=== PATIENT | female | born 1990 | race Caucasian/White ===

== ENCOUNTER 2022-10-11 16:21 | Emergency (ER) | payer MEDICAID ==
[~2022-10-11] VITALS: Ht 167.7 cm; Wt 119.9 kg
[2022-10-11] MEDS ORDERED: IBUPROFEN 800 MG (MOTRIN) TAB PO STA (16:37)
--- NOTE | 2022-10-11 16:44 | ED Fever ---
History of Present Illness General Stated Complaint: BODY ACHES,FEVER,THROAT BURNING Source: patient History of Present Illness Date Seen by Provider: Oct 11, 2022 Time Seen by Provider: 16:26 Initial Comments 31-year-old female presenting with complaints of fever, body aches, throat burning and sinus pressure. She states this all started last night. She has been taking Tylenol Cold and sinus with minimal improvement. She has not been to urgent care or seen her primary care provider. She states that she did a home COVID test that was negative this morning. She feels like the medicine is not helping her and she is worried that she has influenza. She would like Tamiflu if she is positive for influenza. Timing/Duration: yesterday Fever Quality: greater than 100.5 F Fever Therapy [employer]: Tylenol Associated Symptoms: No abdominal pain, No chest pain, No confusion, No cough, No diaphoresis; headache, muscle aches; No nausea/vomiting, No rash, No shortness of breath; sore throat; No stiff neck, No syncope, No weakness Allergies and Home Medications Allergies Coded Allergies: No Known Drug Allergies (Unverified , 10/11/22) Patient Home Medication List Home Medication List Reviewed: Yes Ondansetron (Ondansetron Odt) 4 Mg Tab.rapdis, 4 MG PO Q6H PRN for NAUSEA/VOMITING Prescribed by: RUTH SCHWAB on 10/11/221711 Oseltamivir Phosphate (Tamiflu) 75 Mg Cap, 75 MG PO BID Prescribed by: RUTH SCHWAB on 10/11/221711 Review of Systems Review of Systems Constitutional: chills, fever, malaise EENTM: see HPI Respiratory: no symptoms reported Cardiovascular: no symptoms reported Gastrointestinal: no symptoms reported Genitourinary: no symptoms reported Musculoskeletal: other (body and joint aches) Skin: No rash Psychiatric/Neurological: Headache Past Efwewin-Tryuof-Fhaciz Hx Patient Social History Tobacco Use?: No Past Medical History Surgeries: Yes Appendectomy Physical Exam Vital Signs - First Documented Capillary Refill : Height: '" Weight: lbs. oz. kg; BMI Method: General Appearance: WD/WN, mild distress (tearful at times), obese HEENT: PERRL/EOMI, pharyngeal erythema; No tonsillar exudate Neck: full range of motion, supple, lymphadenopathy (R), lymphadenopathy (L), tender lateral Respiratory: chest non-tender, lungs clear, normal breath sounds, no respiratory distress, no accessory muscle use Cardiovascular: normal peripheral pulses, tachycardia Gastrointestinal: normal bowel sounds, non tender, soft, no pulsatile mass Extremities: normal range of motion, non-tender, normal capillary refill Neurologic/Psychiatric: alert, oriented x 3 Skin: normal color, warm/dry Progress/Results/Core Measures Suspected Sepsis SIRS Temperature: Pulse: Respiratory Rate: Blood Pressure / Mean: Results/Orders Lab Results Laboratory Tests Test 10/11/22 16:39 Range/Units Urine Color YELLOW Urine Clarity CLEAR Urine pH 6.0 5-9 Urine Specific Scott 1.020 1.016-1.022 Urine Protein NEGATIVE NEGATIVE Urine Glucose (UA) NEGATIVE NEGATIVE Urine Ketones NEGATIVE NEGATIVE Urine Nitrite NEGATIVE NEGATIVE Urine Bilirubin NEGATIVE NEGATIVE Urine Urobilinogen 0.2 < = 1.0 MG/DL Urine Leukocyte Esterase NEGATIVE NEGATIVE Urine RBC (Auto) 2+ H NEGATIVE Urine RBC 2-5 H /HPF Urine WBC RARE /HPF Urine Squamous Epithelial Cells 25-50 H /HPF Urine Crystals PRESENT H /LPF Urine Amorphous Sediment FEW ALIA URATES H /LPF Urine Bacteria TRACE /HPF Urine Casts NONE /LPF Urine Mucus SMALL H /LPF Urine Culture Indicated NO Urine Opiates Screen NEGATIVE NEGATIVE Urine Oxycodone Screen NEGATIVE NEGATIVE Urine Methadone Screen NEGATIVE NEGATIVE Urine Propoxyphene Screen NEGATIVE NEGATIVE Urine Barbiturates Screen NEGATIVE NEGATIVE Ur Tricyclic Antidepressants Screen NEGATIVE NEGATIVE Urine Phencyclidine Screen NEGATIVE NEGATIVE Urine Amphetamines Screen NEGATIVE NEGATIVE Urine Methamphetamines Screen POSITIVE H NEGATIVE Urine Benzodiazepines Screen NEGATIVE NEGATIVE Urine Cocaine Screen NEGATIVE NEGATIVE Urine Cannabinoids Screen NEGATIVE NEGATIVE Influenza Type A (RT-PCR) Detected H Not Detecte Influenza Type B (RT-PCR) Not Detected Not Detecte SARS-CoV-2 RNA (RT-PCR) Not Detected Not Detecte Group A Streptococcus Screen NEGATIVE NEGATIVE My Orders Orders - RUTH SCHWAB MD Urine Bedside (10/11/22 16:28) Ua Culture If Indicated (10/11/22 16:28) Drug Screen Stat (Urine) (10/11/22 16:28) Ibuprofen Tablet (Motrin Tablet) (10/11/22 16:37) Covid 19 Inhouse Test (10/11/22 16:37) Influenza A And B By Pcr (10/11/22 16:37) Isolation Central Supply Req (10/11/22 16:37) Rapid Strep A Screen (10/11/22 16:39) Vital Signs/I&O 10/11/22 10/11/22 16:27 16:27 Temp 37.7 Pulse 116 Resp 17 B/P (MAP) 160/87 (111) O2 Delivery Room Air Room Air Capillary Refill : Progress Note #1: Progress Note Obtain swab for strep with her throat and a swab of her nose to check for COVID and influenza. Ibuprofen 800 mg p.o. x1 for her body aches and low-grade temperature of 99.8. Progress Note #2: Progress Note Influenza A came back positive with her COVID and strep negative. As she is within the first 48 hours will prescribe Tamiflu to try and help with her symptoms. She also requesting something for nausea to help settle her stomach. Will prescribe Zofran to try and help with that. Encouraged to push fluids and rest. Alternate Tylenol and ibuprofen if needed for body aches and fever. Check back with the primary care provider for continued concerns. Departure Impression Primary Impression: Influenza A virus present Additional Impressions: Pharyngitis Qualified Codes: J02.9 - Acute pharyngitis, unspecified Acute viral syndrome Generalized body aches Fever in adult Disposition: 01 HOME, SELF-CARE Condition: Stable Departure-Patient Inst. Decision time for Depature: 17:08 Patient Instructions: Sore Throat, Adult ED, Flu, Adult ED, Fatigue ED, Fever, Adult ED Add. Discharge Instructions: Stay well hydrated and keep sipping on fluids. Take the Tamiflu to help shorten the course of the infection from Influenza A virus. Take Ibuprofen alternating with Acetaminophen if needed for fever and body aches. Check with your regular provider for continued concerns. You should quarantine from others until you are fever free for 24 hours without having to take medicine to control your temperature. Scripts Ondansetron (Ondansetron Odt) 4 Mg Tab.rapdis 4 MG PO Q6H PRN for NAUSEA/VOMITING for 5 Days, #20 TAB 0 Refills Prov: RUTH SCHWAB MD 10/11/22 Oseltamivir Phosphate (Tamiflu) 75 Mg Cap 75 MG PO BID for Influenza A for 5 Days, #10 CAP 0 Refills Prov: RUTH SCHWAB MD 10/11/22 Work/School Note: Work Release Form Date Seen in the Emergency Department: Oct 11, 2022 Return to Work: Oct 15, 2022 Restrictions: Return-No Fever (24hrs) RUTH SCHWAB MD Oct 11, 2022 16:44
[2022-10-11 16:51] LABS: BILIRUBIN,URINE NEGATIVE (NEGATIVE); CLARITY,URINE CLEAR; COLOR,URINE YELLOW; GLUCOSE, URINE (UA) NEGATIVE (NEGATIVE); KETONES,URINE NEGATIVE (NEGATIVE); LEUKOCYTE ESTERASE ,URINE NEGATIVE (NEGATIVE); NITRITE,URINE NEGATIVE (NEGATIVE); PROTEIN,URINE NEGATIVE (NEGATIVE)
[2022-10-11 17:00] LABS: AMORPHOUS SEDIMENT,UR FEW AMOR URATES /LPF; BACTERIA,URINE TRACE /HPF; SQUAMOUS EPITHELIAL CELL,UR 25-50 /HPF; WBC,URINE RARE /HPF
[2022-10-11 17:05] LABS: AMPHETAMINE SCREEN, URINE NEGATIVE (NEGATIVE); BARBITURATE SCREEN URINE NEGATIVE (NEGATIVE); BENZODIAZEPINES SCREEN URINE NEGATIVE (NEGATIVE); CANNABINOID SCREEN, URINE NEGATIVE (NEGATIVE); COCAINE SCREEN URINE NEGATIVE (NEGATIVE); METHADONE STAT NEGATIVE (NEGATIVE); OPIATE SCREEN URINE NEGATIVE (NEGATIVE); OXYCODONE STAT NEGATIVE (NEGATIVE); PROPOXYPHENE STAT NEGATIVE (NEGATIVE); TRICYCLIC ANTIDEPRESSANTS SCRE NEGATIVE (NEGATIVE)
[2022-10-11] MEDS ORDERED: ONDA4TAB11 PO (17:12)
[2022-10-11] MEDS ORDERED: OSLT75C PO (17:12)
[2022-10-11 17:20] VITALS: BP 132/75
== END 2022-10-11 17:20 | disposition home or self-care (01) ==
LOC: ER FS 16:24
DX: J10.1 Influenza due to other identified influenza virus with other respiratory manifestations (principal); Z20.822 Contact with and (suspected) exposure to COVID-19; Z28.310 Unvaccinated for COVID-19
CPT/HCPCS: 80306; 81000; 84703; 87430; 87636; 99283

== ENCOUNTER 2023-10-18 20:32 | Emergency (ER) | payer MEDICAID ==
[~2023-10-18] VITALS: Ht 170.1 cm; Wt 119.0 kg
[~2023-10-18 20:32] MED LIST: ONDA4TAB11 PO; OSLT75C PO
--- NOTE | 2023-10-18 21:08 | Diagnostic Imaging Report ---
INDICATION: Left foot pain. 3 views of the left foot show no fracture, dislocation or other acute abnormalities. IMPRESSION: Negative left foot. Dictated by: Dictated on workstation # [id number]
--- NOTE | 2023-10-18 21:29 | ED Lower Extremity ---
General Chief Complaint: Lower Extremity Stated Complaint: L FOOT PAIN Nursing Triage Note: Pt presents to ED per POV and ambulated into ED Overflow reporting L foot pain, pt fell coming out of a shed at 1300 today rolling left foot and foot continues to hurt. Last took 2 tans Tylenol at 1430. History of Present Illness Date Seen by Provider: Oct 18, 2023 Time Seen by Provider: 20:46 Initial Comments 5-year-old female is here with complaints of left foot pain and swelling after she twisted her foot as she was coming out of the shower at her house around 1:00 today afternoon. Patient wants to make sure she does not have a fracture. Patient is able to ambulate on it however it is painful. Allergies and Home Medications Allergies Coded Allergies: No Known Drug Allergies (Unverified , 10/11/22) Patient Home Medication List Home Medication List Reviewed: Yes Ondansetron (Ondansetron Odt) 4 Mg Tab.rapdis, 4 MG PO Q6H PRN for NAUSEA/VOMITING Prescribed by: RUTH SCHWAB on 10/11/22 171 Oseltamivir Phosphate (Tamiflu) 75 Mg Cap, 75 MG PO BID Prescribed by: RUTH SCHWAB on 10/11/22 171 Review of Systems Constitutional: no symptoms reported Musculoskeletal: other Past Wejvhhn-Vyrtwl-Xjeqya Hx Patient Social History Tobacco Use?: No Use of E-Cig and/or Vaping dev: No Substance use?: No Alcohol Use?: No Immunizations Up To Date Influenza Vaccine Up-to-Date: No; Not Current First/Initial COVID19 Vaccinat: Unvaccinated Past Medical History Surgeries: Yes Appendectomy Physical Exam Vital Signs Vital Signs - First Documented 10/18/23 20:35 Temp 36.7 Pulse 91 Resp 18 B/P (MAP) 139/91 (107) Pulse Ox 100 O2 Delivery Room Air Capillary Refill : Less Than 3 Seconds Height, Weight, BMI Height: '" Weight: lbs. oz. kg; 41.00 BMI Method: General Appearance: WD/WN, no apparent distress HEENT: PERRL/EOMI Neck: full range of motion Feet: left foot normal range of motion, left foot ecchymosis (On dorsum of proximal foot), left foot soft tissue tenderness, left foot swelling (On base of proximal foot and dorsum) Neurologic/Tendon: normal sensation, normal motor functions Neurologic/Psychiatric: no motor/sensory deficits, alert, oriented x 3 Skin: normal color Progress/Results/Core Measures Results/Orders My Orders Orders - NANDO JAMES MD Foot 3 View Left (10/18/23 20:47) Vital Signs/I&O 10/18/23 20:35 Temp 36.7 Pulse 91 Resp 18 B/P (MAP) 139/91 (107) Pulse Ox 100 O2 Delivery Room Air Blood Pressure Mean: 107 Progress Progress Note : Progress Note 1. LEFT FOOT SPRAIN: - XR LEFT FOOT: no fracture or dislocation - Advised ice application, ibuprofen as needed for swelling and pain - Follow up with podiatry within 7 to 10 days - Ortho boot given in ER - Pt does not want crutches Diagnostic Imaging Diagonstic Imaging: Xray Plain Films/CT/US/NM/MRI: other Comments [facility] [place], [place] NAME: NOEMIGOKUL M [facility] REC#: [id number] PT STATUS: REG ER : 1990 PHYSICIAN: NANDO JAMES MD ADMIT DATE: 10/18/23/ER FS Signed Date of Exam:10/18/23 FOOT 3 VIEW LEFT INDICATION: Left foot pain. 3 views of the left foot show no fracture, dislocation or other acute abnormalities. IMPRESSION: Negative left foot. Dictated by: Dictated on workstation # [id number] Dict: 10/18/232103 Trans: 10/18/232108 [facility] [id number] Interpreted by: IVAN ROMAN MD Electronically signed by: IVAN ROMAN MD 10/18/232108 Departure Impression Primary Impression: Sprain of foot, left Qualified Codes: S93.602A - Unspecified sprain of left foot, initial encounter Disposition: 01 HOME, SELF-CARE Condition: Stable Departure-Patient Inst. Referrals: AALIYAH ALBA MD (PCP/Family) Primary Care Physician Patient Instructions: Foot Sprain ED, Using Cold for Pain Add. Discharge Instructions: - Advised ice application, ibuprofen as needed for swelling and pain - Follow up with podiatry within 7 to 10 days: Call for appointment: DR. KHADAR MEJIA [address] [place] [address] - Ortho boot given in ER All discharge instructions reviewed with patient and/or family. Voiced understanding. NANDO JAMES MD Oct 18, 2023 21:29
[2023-10-18 21:40] VITALS: BP 139/91
== END 2023-10-18 21:40 | disposition home or self-care (01) ==
LOC: EDUNIT# 20:32 → ER FS 20:33
DX: S93.602A Unspecified sprain of left foot, initial encounter (principal); W19.XXXA Unspecified fall, initial encounter; X50.1XXA Overexertion from prolonged static or awkward postures, initial encounter; Y92.009 Unspecified place in unspecified non-institutional (private) residence as the place of occurrence of the external cause
CPT/HCPCS: 73630; 99283; L2114